=== PATIENT | male | born 1980 | race African-American/Black ===

== ENCOUNTER 2016-11-20 16:23 | Emergency (ER) | payer BC, OTHER | END 2016-11-20 17:45 | disposition home or self-care (01) | LOC: ER1 16:23 | DX: S83.92XA Sprain of unspecified site of left knee, initial encounter (principal); I10 Essential (primary) hypertension; E78.5 Hyperlipidemia, unspecified; F17.210 Nicotine dependence, cigarettes, uncomplicated; Z90.49 Acquired absence of other specified parts of digestive tract; W22.8XXA Striking against or struck by other objects, initial encounter | CPT/HCPCS: 73564; 99283 ==

== ENCOUNTER 2017-01-27 12:14 | Emergency (ER) | payer BC, OTHER | END 2017-01-27 12:30 | disposition home or self-care (01) | LOC: ER1 12:14 | DX: L03.317 Cellulitis of buttock (principal); E78.5 Hyperlipidemia, unspecified; I10 Essential (primary) hypertension; F17.210 Nicotine dependence, cigarettes, uncomplicated | CPT/HCPCS: 99283 ==

== ENCOUNTER 2017-05-22 23:13 | Emergency (ER) | payer BC, OTHER | END 2017-05-23 00:30 | disposition left against medical advice (07) | LOC: ER1 23:13 | DX: Z53.21 Procedure and treatment not carried out due to patient leaving prior to being seen by health care provider (principal) ==

== ENCOUNTER 2020-10-28 21:45 | Emergency (ER) | payer BC, OTHER ==
[~2020-10-28 21:45] MED LIST: BACTRIM DS TAB1 EACH PO; BENTYL 20MG TAB20 MG PO; IBUPROFEN600 MG PO; NAPROSYN500 MG PO; NORCO 5-325 TA1 EACH PO; NORFLEX 100 MG100 MG PO; TYLENOL 500 MG500 MG PO; Voltaren Gel 1 % TOP; Voltaren gel 1% TOP; ZOFRAN4 MG PO
== END 2020-10-28 23:03 | disposition left against medical advice (07) ==
LOC: ER1 21:45
DX: Z53.21 Procedure and treatment not carried out due to patient leaving prior to being seen by health care provider (principal)

== ENCOUNTER 2020-12-18 12:30 | Emergency (ER) | payer BC, OTHER ==
[2020-12-18 14:00] LABS: HEMOGLOBIN 16.5 gm/dl (14.0-17.5); RED BLOOD COUNT 5.05 M/UL (4.20-5.50); WHITE BLOOD COUNT 3.7 K/UL (4.5-11.0)
[2020-12-18 14:21] LABS: BUN/CREATININE RATIO 15 (0-10)
[2020-12-18] MEDS ORDERED: CEFPODOXIME PR200 MG PO (17:05)
== END 2020-12-18 17:15 | disposition home or self-care (01) ==
LOC: ER1 12:30
PROVIDERS: Student in an Organized Health Care Education/Training Program
DX: N39.0 Urinary tract infection, site not specified (principal); K74.60 Unspecified cirrhosis of liver; D69.6 Thrombocytopenia, unspecified; F17.210 Nicotine dependence, cigarettes, uncomplicated; Z90.49 Acquired absence of other specified parts of digestive tract
CPT/HCPCS: 80053; 81001; 85025; 99284; Q9967

== ENCOUNTER 2021-01-08 12:22 | Emergency (ER) | payer BC, OTHER ==
[~2021-01-08 12:22] MED LIST changes: +CEFPODOXIME PR200 MG PO
[2021-01-08] MEDS ORDERED: BACTROBAN OINT22 GM EXT (18:01)
[2021-01-08] MEDS ORDERED: CLEOCIN HCL300 MG PO (18:01)
== END 2021-01-08 18:15 | disposition home or self-care (01) ==
LOC: ER1 12:22
DX: L02.31 Cutaneous abscess of buttock (principal); F17.210 Nicotine dependence, cigarettes, uncomplicated
CPT/HCPCS: 10060; 87070; 87205; 99283

== ENCOUNTER 2021-04-09 16:48 | Emergency (ER) | payer BC, OTHER ==
[~2021-04-09 16:48] MED LIST changes: +BACTROBAN OINT22 GM EXT; +CLEOCIN HCL300 MG PO
== END 2021-04-09 21:15 | disposition home or self-care (01) ==
LOC: ER1 16:48
DX: R09.81 Nasal congestion (principal); R05 Cough; Z20.822 Contact with and (suspected) exposure to COVID-19; Z90.49 Acquired absence of other specified parts of digestive tract; F17.200 Nicotine dependence, unspecified, uncomplicated
CPT/HCPCS: 71045; 99283; U0002

== ENCOUNTER 2021-08-29 23:11 | Emergency (ER) | payer BC, OTHER | END 2021-08-30 02:30 | disposition home or self-care (01) | LOC: ER1 23:11 | DX: J02.9 Acute pharyngitis, unspecified (principal); F17.210 Nicotine dependence, cigarettes, uncomplicated; Z20.822 Contact with and (suspected) exposure to COVID-19 | CPT/HCPCS: 0240U; 87081; 87880; 99283 ==